=== PATIENT | male | born 1975 | race Caucasian/White ===

== ENCOUNTER → 2024-02-10 | Outpatient (CLI) | payer OTHER | END | disposition home or self-care (01) | LOC: LABWHC1 10:17 | PROVIDERS: ATTEND Family Medicine | DX: E11.9 Type 2 diabetes mellitus without complications (principal) | CPT/HCPCS: 36415; 83036 ==

== ENCOUNTER → 2024-03-21 | Outpatient (CLI) | payer OTHER ==
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
== END | disposition home or self-care (01) ==
LOC: RADXRMAIN 18:42
PROVIDERS: ATTEND Family Medicine
DX: M19.041 Primary osteoarthritis, right hand (principal); G89.29 Other chronic pain

== ENCOUNTER → 2024-06-25 | Outpatient (CLI) | payer OTHER ==
--- NOTE | 2024-06-25 08:31 | XR ---
EXAMINATION TYPE: XR abdomen 1V DATE OF EXAM: 06/25/2024 8:25 AM COMPARISON: None CLINICAL INDICATION: Male, 49 years old with history of R10.11 RIGHT UPPER QUADRANT PAIN; PHH, pain TECHNIQUE: One radiographic view of the abdomen was obtained. FINDINGS: Lung bases are clear. Scattered colonic air with mild overall stroke. A couple prominent to mildly dilated small bowel loops in the midabdomen measuring up to 3.5 cm in caliber. Hypertrophic f acet arthropathy lower lumbar spine. No suspicious calcifications are identified. IMPRESSION: Nonspecific bowel gas pattern, overall nonobstructive at this time. Mildly dilated small bowel loops in the midabdomen measuring up to 3.5 cm in caliber and could reflect an ileus or enteritis. Follow-u p can be performed. [facility], , 06/25/2024 8:29 AM
[2024-06-25 08:56] LABS: African American GFR (CKD) >90 (>60 ml/min/1.73 sqM); Blood Urea Nitrogen 17 mg/dL (9-20); Non-African American GFR(CKD) >90 (>60 ml/min/1.73 sqM)
--- NOTE | 2024-06-25 10:32 | CT ---
EXAMINATION TYPE: CT abdomen pelvis w con CT DLP: 1968 mGycm, Automated exposure control for dose reduction was used. DATE OF EXAM: 06/25/2024 10:20 AM COMPARISON: Abdominal radiograph 06/25/2024 CLINICAL INDICATION:Male, 49 years old with history of R10.11 RIGHT UPPER QUADRANT PAIN; RUQ PAIN SIN CE HAVING GALLBLADDER REMOVED ONE YEAR AGO. TECHNIQUE: Standard CT of the abdomen and pelvis following the administration of 100 cc of Isovue 3 00 IV contrast material and oral contrast. Coronal and sagittal reformats were performed. FINDINGS: LOWER CHEST: Visualized lungs are clear. Borderline cardiomegaly. Elevation of the right hemidiaphrag m. ABDOMEN LIVER: Diffusely hypoattenuating parenchyma. Mildly enlarged measuring 20.9 cm in CC dimension. No fo alina lesion. GALLBLADDER AND BILE DUCTS: The gallbladder is surgically absent. No biliary ductal dilatation. Hyper dense 5 mm focus within the gallbladder fossa which may represent a residual gallstone. No fluid tamiko ection. PANCREAS: Unremarkable. SPLEEN: Unremarkable. ADRENAL GLANDS: Unremarkable. KIDNEYS AND URETERS: No evidence of hydronephrosis or renal calculus. The kidneys enhance symmetrical ly. Contrast is demonstrated within both collecting systems on the delayed phase. PELVIS BLADDER: Unremarkable REPRODUCTIVE: Unremarkable. ABDOMEN & PELVIS STOMACH AND BOWEL: Stomach and duodenum are unremarkable. Scattered distal colonic diverticulosis wit hout evidence for acute diverticulitis. No focal bowel wall thickening or surrounding inflammatory ch anges. Enteric contrast reaches the hepatic flexure. The appendix is within normal limits. No evidenc e of bowel obstruction. PERITONEUM: No evidence of pneumoperitoneum or free fluid. VASCULATURE: No evidence of aortic aneurysm. MUSCULOSKELETAL: No acute osseous abnormalities. Degenerative changes of the bilateral SI joints with anterior bridging. Multilevel degenerative disc disease with multilevel lumbar posterior disc osteop hytes. Moderate to severe high-grade stenosis at these levels from L1 through L5. LYMPH NODES: No evidence for lymphadenopathy. SOFT TISSUE/ABDOMINAL WALL: Tiny fat filled umbilical hernia. IMPRESSION: 1. No acute intra-abdominal/pelvic process. 2. Post cholecystectomy changes with a 5 mm hyperdense focus in the gallbladder fossa which may repre sent a residual gallstone. 3. Distal colonic diverticulosis without evidence for acute diverticulitis. 4. Mild hepatomegaly with diffuse fatty infiltration. 5. Multilevel lumbar posterior disc osteophytes resulting in moderate to severe high-grade stenosis. Consider further evaluation with MR as clinically indicated. [facility], , 06/25/2024 10:30 AM
== END | disposition home or self-care (01) ==
LOC: RADCTMAIN 08:09
PROVIDERS: ATTEND Family Medicine
DX: K63.89 Other specified diseases of intestine (principal); R93.3 Abnormal findings on diagnostic imaging of other parts of digestive tract
CPT/HCPCS: 82565; 84520; 74018; 74177; 36415; Q9967

== ENCOUNTER → 2024-09-22 | Outpatient (CLI) | payer OTHER ==
[2024-09-22 15:28] LABS: Follicle Stimulating Hormone 3.1 mIU/mL
== END | disposition home or self-care (01) ==
LOC: LABWHC1 08:06
PROVIDERS: ATTEND Internal Medicine
DX: E29.1 Testicular hypofunction (principal)
CPT/HCPCS: 36415; 83001; 83002; 84146; 84402; 84403